=== PATIENT | male | born 1995 | race Caucasian/White ===

== ENCOUNTER 2023-09-09 13:44 | Emergency (ER) | payer OTHER | END 2023-09-09 15:11 | disposition home or self-care (01) | LOC: CSHERS 13:44 | DX: S80.11XA Contusion of right lower leg, initial encounter (principal); W22.8XXA Striking against or struck by other objects, initial encounter ==

== ENCOUNTER 2024-03-14 09:58 | Observation (INO) | payer SELFPAY ==
[2024-03-14 11:11] LABS: #Basophils 0.06 10x3/uL (0.0-0.2); #Eosinphils 0.19 10x3/uL (0.0-0.5); #Monocytes 0.94 10x3/uL (0.0-1.1); #Neutrophils 5.43 10x3/uL (1.5-8.4); %Basophils 0.7 % (0.0-2.0); %Eosinophils 2.1 % (0.0-6.0); %Lymphocytes 26.4 % (18.0-47.0); %Monocytes 10.4 % (0.0-10.0); %Neutrophils 59.7 % (40.0-75.0); Hemoglobin 16.6 g/dL (13.5-17.5); Mean Corpuscular HGB CONC 34.6 g/dL (32.0-36.0); Mean Corpuscular Hemoglobin 32.4 pg (27.0-33.0); Mean Corpuscular Volume 93.6 fL (81.2-95.1); Mean Platelet Volume 8.5 fL (7.4-10.4); Platelet Count 294 10x3/uL (150-450); RBC Distribution Width 11.9 % (11.5-14.5); Red Blood Cell (RBC) Count 5.13 10x6/uL (4.32-5.72); White Blood Cell (WBC) Count 9.1 10x3/uL (3.5-10.5)
[2024-03-14 11:39] LABS: ALT (SGPT) 23 U/L (8-55); AST (SGOT) 25 U/L (5-34); Albumin 4.6 g/dL (3.5-5.0); Alkaline Phosphatase 74 U/L (40-110); Anion Gap 18 mmol/L (10-20); BUN (Urea Nitrogen) 14 mg/dL (8.9-20.6); Bilirubin, Total 1.1 mg/dL (0.2-1.2); Calc. Creatinine Clearance 0 mL/min (70-130); Calcium 9.8 mg/dL (7.8-10.44); Carbon Dioxide 21 mmol/L (22-29); Chloride 104 mmol/L (98-107); Estimated GFR 91; Globulin 3.5 g/dL (2.4-3.5); Glucose 87 mg/dL (70-105); Potassium 3.8 mmol/L (3.5-5.1); Protein, Total 8.1 g/dL (6.0-8.3); Sodium 139 mmol/L (136-145)
[2024-03-14] MEDS ORDERED: Lorazepam 2 MG/ML VIAL ONE (11:41)
[2024-03-14] MEDS ORDERED: chlordiazePOXIDE HCl 25 MG CAP ONE (11:52)
[2024-03-14] MEDS ORDERED: Ondansetron PF 4 MG/2 ML Vial ONE (11:52)
[2024-03-14] MEDS ORDERED: Thiamine HCl 200 MG/2 ML VIAL ONE (12:08)
[2024-03-14] MEDS ORDERED: Thiamine 100 MG TAB ONE (12:10)
[2024-03-14] MEDS ORDERED: Lorazepam 2 MG/ML VIAL IM PRN (13:14)
[2024-03-14] MEDS ORDERED: Electrolyte Replacement Protocol 1 EACH FS SCH (13:15)
[2024-03-14 14:01] LABS: Bilirubin, Direct 0.5 mg/dL (0.1-0.3); Magnesium 2.1 mg/dL (1.6-2.6); Phosphorus 2.6 mg/dL (2.3-4.7)
[2024-03-14 14:30] VITALS: BMI 24.4
[2024-03-14] MEDS: Thiamine HCl 200 MG/2 ML VIAL SLOW IVP SCH (16:20)
[2024-03-14] MEDS: Multivit, Therapeutic 1 TAB PO SCH (16:20)
[2024-03-14] MEDS: Folic Acid 1 MG TAB PO SCH (16:20)
[2024-03-14] MEDS: Lorazepam 1 MG TAB PO PRN (18:37)
[2024-03-14] MEDS: Acetaminophen 325 MG TAB PO SCH (18:38)
[2024-03-14] MEDS: Ibuprofen 200 MG TAB PO SCH (20:33)
[2024-03-14] MEDS: chlordiazePOXIDE HCl 25 MG CAP PO SCH (20:34)
[2024-03-15 04:50] LABS: ALT (SGPT) 18 U/L (8-55); AST (SGOT) 22 U/L (5-34); Albumin 3.7 g/dL (3.5-5.0); Alkaline Phosphatase 56 U/L (40-110); Anion Gap 13 mmol/L (10-20); BUN (Urea Nitrogen) 17 mg/dL (8.9-20.6); Bilirubin, Total 2.6 mg/dL (0.2-1.2); Calc. Creatinine Clearance 110 mL/min (70-130); Carbon Dioxide 26 mmol/L (22-29); Chloride 103 mmol/L (98-107); Estimated GFR 90; Globulin 2.8 g/dL (2.4-3.5); Glucose 79 mg/dL (70-105); Magnesium 2.4 mg/dL (1.6-2.6); Protein, Total 6.5 g/dL (6.0-8.3); Sodium 138 mmol/L (136-145)
[2024-03-15 04:53] LABS: #Basophils 0.03 10x3/uL (0.0-0.2); #Eosinphils 0.23 10x3/uL (0.0-0.5); #Neutrophils 3.39 10x3/uL (1.5-8.4); %Basophils 0.5 % (0.0-2.0); %Eosinophils 3.5 % (0.0-6.0); %Lymphocytes 30.8 % (18.0-47.0); %Monocytes 13.6 % (0.0-10.0); %Neutrophils 51.1 % (40.0-75.0); Hematocrit 39.5 % (38.8-50.0); Hemoglobin 13.7 g/dL (13.5-17.5); Mean Corpuscular HGB CONC 34.7 g/dL (32.0-36.0); Mean Corpuscular Hemoglobin 32.6 pg (27.0-33.0); Mean Platelet Volume 8.9 fL (7.4-10.4); Platelet Count 226 10x3/uL (150-450); RBC Distribution Width 11.9 % (11.5-14.5); White Blood Cell (WBC) Count 6.6 10x3/uL (3.5-10.5)
[2024-03-15] MEDS: Ondansetron ODT 4 MG TAB PO PRN (05:36)
[2024-03-15] MEDS: Thiamine HCl 200 MG/2 ML VIAL SLOW IVP SCH (08:44)
[2024-03-15] MEDS: Multivit, Therapeutic 1 TAB PO SCH (08:45)
[2024-03-15] MEDS: Folic Acid 1 MG TAB PO SCH (08:45)
[2024-03-15] MEDS: Nicotine 21 MG PATCH TD SCH (08:45)
[2024-03-15 11:43] VITALS: BP 141/86; TEMP 98
[2024-03-15] MEDS ORDERED: Lorazepam 1 MG TAB PO PRN (13:15)
[2024-03-16] MEDS ORDERED: Lorazepam 1 MG TAB PO PRN (13:15)
[2024-03-17] MEDS ORDERED: Thiamine 100 MG TAB PO SCH (09:00)
[2024-03-17] MEDS ORDERED: Lorazepam 0.5 MG TAB PO PRN (13:15)
== END 2024-03-15 12:17 | disposition home or self-care (01) ==
LOC: CSHERS 09:58 → CSHTELE 14:20
PROVIDERS: ADMIT Family Medicine; ATTEND Family Medicine
DX: F10.230 Alcohol dependence with withdrawal, uncomplicated (principal); R55 Syncope and collapse; F17.200 Nicotine dependence, unspecified, uncomplicated; Z88.0 Allergy status to penicillin; Y90.6 Blood alcohol level of 120-199 mg/100 ml
CPT/HCPCS: 36415; 80053; 80307; 82248; 83690; 83735; 84100; 85025; 93005; 96374; 96375; 96376; G0378; J2060; J2405; J3411; Q0162

== ENCOUNTER 2024-04-16 00:56 | Emergency (ER) | payer SELFPAY ==
[2024-04-16] MEDS ORDERED: Thiamine HCl 200 MG/2 ML VIAL ONE (01:03)
[2024-04-16] MEDS ORDERED: Lorazepam 2 MG/ML VIAL ONE (01:03)
[2024-04-16 01:21] LABS: #Basophils 0.04 10x3/uL (0.0-0.2); #Eosinophils 0.04 10x3/uL (0.0-0.5); #Monocytes 0.81 10x3/uL (0.0-1.1); #Neutrophils 3.38 10x3/uL (1.5-8.4); %Basophils 0.6 % (0.0-2.0); %Eosinophils 0.6 % (0.0-6.0); %Monocytes 11.9 % (0.0-10.0); %Neutrophils 49.5 % (40.0-75.0); Hematocrit 47.5 % (38.8-50.0); Hemoglobin 16.6 g/dL (13.5-17.5); Mean Corpuscular HGB CONC 34.9 g/dL (32.0-36.0); Mean Corpuscular Hemoglobin 32.4 pg (27.0-33.0); Mean Corpuscular Volume 92.6 fL (81.2-95.1); Mean Platelet Volume 8.4 fL (7.4-10.4); Platelet Count 282 10x3/uL (150-450); Red Blood Cell (RBC) Count 5.13 10x6/uL (4.32-5.72); White Blood Cell (WBC) Count 6.8 10x3/uL (3.5-10.5)
[2024-04-16 01:33] LABS: Acetaminophen Less than 10 mcg/mL (Less than 10); Alcohol 212.9 mg/dL (Less than 10); Lipase 73 U/L (8-78); Magnesium 2.1 mg/dL (1.6-2.6); Salicylate Less than 8.0 mg/dL (Less than 8.0)
[2024-04-16 01:34] LABS: ALT (SGPT) 27 U/L (8-55); AST (SGOT) 31 U/L (5-34); Albumin 4.3 g/dL (3.5-5.0); Alkaline Phosphatase 65 U/L (40-110); Anion Gap 18 mmol/L (10-20); BUN (Urea Nitrogen) 15 mg/dL (8.9-20.6); Bilirubin, Total 0.5 mg/dL (0.2-1.2); Calc. Creatinine Clearance 0 mL/min (70-130); Calcium 9.8 mg/dL (7.8-10.44); Carbon Dioxide 23 mmol/L (22-29); Chloride 104 mmol/L (98-107); Estimated GFR 96; Globulin 3.4 g/dL (2.4-3.5); Glucose 110 mg/dL (70-105); Protein, Total 7.7 g/dL (6.0-8.3); Sodium 141 mmol/L (136-145)
[2024-04-16 03:31] LABS: Amphetamine Not Detected (NotDetected); Barbiturates Screen Not Detected (NotDetected); Benzodiazepine Screen Detected (NotDetected); Cocaine Metabolite Screen Not Detected (NotDetected); Methadone Not Detected (NotDetected); Methamphetamine Not Detected (NotDetected); Opiate Screen Not Detected (NotDetected); Oxycodone Screen Not Detected (NotDetected); Phencyclidine (PCP) Not Detected (NotDetected); THC/Cannabinoid Screen Detected (NotDetected); Tricyclic Screen Not Detected (NotDetected)
[2024-04-16] MEDS ORDERED: Ondansetron PF 4 MG/2 ML Vial ONE ×2 (04:01→10:05)
[2024-04-16] MEDS ORDERED: Famotidine/PF 20 mg/2ml Vial ONE (04:01)
[2024-04-16] MEDS ORDERED: Promethazine HCl 25 MG in Sodium Chloride 0.9% 50 ML IVPB SCH (10:30)
== END 2024-04-16 11:35 | disposition home or self-care (01) ==
LOC: CSHERS 00:56
DX: F10.20 Alcohol dependence, uncomplicated (principal); R11.2 Nausea with vomiting, unspecified; Y90.7 Blood alcohol level of 200-239 mg/100 ml
CPT/HCPCS: 36415; 80053; 80306; 80307; 83690; 83735; 85025; 93005; 96361; 96374; 96375; J2060; J2405; J2550; J3411; J3490